=== PATIENT | male | born 1945 | race Caucasian/White ===

== ENCOUNTER 2019-05-31 11:48 | Emergency (ER) | payer OTHER ==
[2019-05-31 12:09] VITALS: BP 104/68; PULSE 85; TEMP 97.6; BMI 21.7
--- NOTE | 2019-05-31 12:18 | PDOC ---
History of Present Illness - General Chief Complaint: Urinary Problem Stated Complaint: URINARY PROBLEM Time Seen by Provider: 05/31/19 11:52 History Source: Patient Exam Limitations: No Limitations - History of Present Illness Initial Comments: 05/31/19 12:19 74-year-old gentleman history of diabetes, hypothyroid, pulmonary fibrosis status post Lung transplant on cell cept Presents with complaints of difficulty urinating. Patient states he had a bladder procedure that involves 'clipping' Several days ago had a Villarreal catheter for 1 day that was removed on Sunday. When the Villarreal was placed patient noted that he had testicular discomfort when Villarreal was placed that is gradually improved after removal of the Villarreal catheter , However The patient notes that when he is urinating He has mild testicular discomfort, He also notes that it is more difficult to urinate when he sitting down as when he is standing up And notes that when he urinates it does not come out in one steady stream but splatters out of his penis. Patient notes that last night he had one episode of bloody urine however it is since resolved. Patient denies any actual dysuria. He denies any current discomfort or pain in the ED. Patient denies any fever, chills, abdominal pain, back pain, Chest pain , shortness of breath, Nausea, vomiting, Penile discharge. ROS: Constitutional - no reported Fever, Chills, HEENT: no reported vision changes, sore throat Respiratory: no reported cough, sob, hemoptysis Cardiac: no reported chest pain, palpitations, light headedness, leg swelling Abd/GI: no reported abd pain, nausea, vomiting, blood per rectum, melena, diarrhea : +urination problem (see hpi for details) no reported dysuria, frequency, discharge Musculskelatal - no reported back pain, joint swelling skin - no reported bruising, erythema, rash neurological: no reported headache, numbness, focal weakness, tingling, ataxia, hematologic: no reported easy bruising, easy bleeding exam: GENERAL: The patient is awake, alert, and fully oriented, Nontoxic - in no acute distress. HEAD: Normocephalic, atraumatic. EYES: extraocular movements intact, sclera anicteric, conjunctiva clear. ENT: Normal voice, Moist mucous membranes. NECK: Normal range of motion, supple LUNGS: Breath sounds equal, clear to auscultation bilaterally. No wheezes, no rhonchi, no rales. HEART: Regular rate and rhythm, normal S1 and S2 without murmur, rub or gallop. ABDOMEN: Soft, nontender, No guarding, no rebound. No CVA tenderness : circumcised penis, no testicular tenderness erythema, edema, induration. no bleeding or discahrge. EXTREMITIES: Normal range of motion, no edema. NEUROLOGICAL: No facial assymetry, Normal speech, PSYCH: Normal mood, normal affect. SKIN: Warm, Dry, normal turgor, Will obtain UA to screen for UTI The patient's pain with urination of the testicles does not seem consistent with torsion, orchitis, epididymitis. Will discuss with Dr. Joseph regarding plan once urine is back Past History - Past Medical History Allergies/Adverse Reactions: Allergies Allergy/AdvReac Type Severity Reaction Status Date / Time No Known Allergies Allergy Verified 05/31/19 11:51 Home Medications: Ambulatory Orders Alendronate Sodium [Fosamax] 1 tab PO ASDIR 05/31/19 Azithromycin 250 mg PO ASDIR 05/31/19 Calcium Carbonate [Calcium] 600 mg PO BID 05/31/19 Cholecalciferol (Vitamin D3) [Vitamin D3] 1,000 unit PO DAILY 05/31/19 Ferrous Sulfate [Iron] 325 mg PO DAILY 05/31/19 Fexofenadine HCl [Yulisa Allergy] 180 mg PO DAILY 05/31/19 Finasteride [Proscar] 5 mg PO DAILY 05/31/19 Glipizide 5 mg PO DAILY 05/31/19 Insulin NPH Human Isophane [Humulin N] 10 unit SQ DAILY 05/31/19 Ipratropium [place] [Atrovent Hfa] 12.9 gm IH BID 05/31/19 Levothyroxine [Synthroid -] 125 mcg PO DAILY 05/31/19 Lysine HCl [l-Lysine] 500 mg PO BID 05/31/19 Magnesium Oxide [Magnesium] 400 mg PO DAILY 05/31/19 Methylprednisolone [Medrol -] 4 mg PO DAILY 05/31/19 Midodrine HCl 5 mg PO DAILY 05/31/19 Mirabegron [Myrbetriq] 50 mg PO DAILY 05/31/19 Mycophenolate Mofetil [Cellcept] 1 gm PO BID 05/31/19 Nystatin [Mycolog -] 100,000 unit PO BID 05/31/19 [place]-3 Fatty Acids [Fish Oil Concentrate] 300 mg PO DAILY 05/31/19 Omeprazole 20 mg PO DAILY 05/31/19 Phenazopyridine HCl [Pyridium] 100 mg PO TID PRN #9 tablet 05/31/19 Prednisone 7.5 mg PO DAILY 05/31/19 No122/Iron/Folic Acid [ Multi Tablet] 1 each PO DAILY 05/31/19 Sulfamethoxazole/Trimethoprim [Bactrim Ds Tablet] 1 each PO ASDIR 05/31/19 Tacrolimus [Prograf] 1 mg PO BID 05/31/19 Tamsulosin HCl [Flomax] 0.4 mg PO DAILY 05/31/19 Valacyclovir HCl [Valtrex] 1,000 mg PO DAILY 05/31/19 Anemia: Yes Asthma: No Cancer: No Cardiac Disorders: No CVA: No COPD: Yes (PULMONARY FIBROSIS) CHF: No Dementia: No Diabetes: Yes (MEDICATION INDUCED) GI Disorders: No Disorders: Yes (BPH) HTN: No Hypercholesterolemia: No Liver Disease: No Seizures: No Thyroid Disease: Yes (HYPOTHYROIDISM?) - Surgical History Abdominal Surgery: No Appendectomy: No Cardiac Surgery: No Cholecystectomy: No Lung Surgery: Yes (LUNG TRANSPLANT 02/2012) Neurologic Surgery: No Orthopedic Surgery: No - Psycho Social/Smoking Cessation Hx Smoking Status: No Smoking History: Unknown if ever smoked Have you smoked in the past 12 months: No Number of Cigarettes Smoked Daily: 0 If you are a former smoker, when did you quit?: 1970 Hx Alcohol Use: No Drug/Substance Use Hx: No Substance Use Type: None Hx Substance Use Treatment: No *Physical Exam - Vital Signs Last Vital Signs Temp Pulse Resp BP Pulse Ox 97.6 F 85 16 104/68 100 05/31/19 11:48 05/31/19 11:48 05/31/19 11:48 05/31/19 11:48 05/31/19 11:48 Medical Decision Making - Medical Decision Making 05/31/19 12:53 pts urine noted for hematuria no signs of infection no current pain will dw dr. magana 05/31/19 13:[address] becker covering for dr magana would not do anything else at this time his discomfort may be due to post procedural discomfort pt requesting a villarreal catheter as he mentions the urge to urinate frequently is disrupting to his life/sleep and he feels like he cannot go anwyerhe as he needs to go to the bathroom all of the time. but will defer as pt is able to urinate and due to risk of infection with the pt being a lung transplant pt and on immunosuppresants. will have pt fu with dr. magana on sunday return porecautions were dsicussed I discussed the physical exam findings, ancillary test results and final diagnoses with the patient. I answered all of the patient's questions. The patient was satisfied with the care received and felt comfortable with the discharge plan and treatment plan. The patient will call their primary care physician within 24 hours to arrange follow-up and will return to the Emergency Department with any new, persistent or worsening symptoms. Discharge - Discharge Information Problems reviewed: Yes Clinical Impression/Diagnosis: Urinary frequency Condition: Improved Disposition: HOME - Admission No - Follow up/Referral Referrals: August Joseph MD., MD [Staff Physician] - - Patient Discharge Instructions Patient Printed Discharge Instructions: DI for Dysuria -- Adult Additional Instructions: Return to the emergency department immediately with ANY new, persistent or worsening symptoms Including any fever, chills, pain when you urinate, significant bleeding, testicular pain or any other concerns. You MUST call and follow up with your urologist on sunday for further evaluation of your symptoms. Results were discussed with you. Please make sure your doctor reviews the results of your emergency evaluation. Your Emergency Department visit is not complete without a follow up with your doctor. Print Language: FRISIAN - Post Discharge Activity
== END 2019-05-31 13:35 | disposition home or self-care (01) ==
LOC: FER 11:48
DX: R35.0 Frequency of micturition (principal); Z87.891 Personal history of nicotine dependence; E03.9 Hypothyroidism, unspecified; J44.9 Chronic obstructive pulmonary disease, unspecified; E11.9 Type 2 diabetes mellitus without complications; N40.0 Benign prostatic hyperplasia without lower urinary tract symptoms
CPT/HCPCS: 81003; 81015; 87086; 87186; 99283-25